=== PATIENT | female | born 1995 | race Caucasian/White ===

== ENCOUNTER 2023-06-15 23:16 | Emergency (ER) | payer OTHER, SELFPAY ==
[2023-06-15 23:19] VITALS: BP 140/85; PULSE 73; RESP 16; TEMP 36.5; O2SAT 100
--- NOTE | 2023-06-15 23:29 | ED_ITS ---
HPI - Dental/Oral General Chief complaint: Dental/Oral Stated complaint: HEADACHE/DENTAL PAIN Time Seen by Provider: 06/15/23 23:26 Source: patient Mode of arrival: walk-in Limitations: no limitations History of Present Illness HPI Narrative: presents complaining of dental pain . Worsening over the past week. Now has pain radiating from her tooth and causing a headache. No fever or dizziness . no nausea or neck pain Teeth map: 1. tender caries Related Data Home Medications Medication Instructions Recorded Confirmed No Known Home Medications 06/15/23 06/15/23 Allergies Allergy/AdvReac Type Severity Reaction Status Date / Time amoxicillin Allergy Uncoded 06/15/23 23:21 Review of Systems ROS Status of ROS 10 or more systems reviewed and unremarkable except as noted in history and below PFS PFS Social History Smoking status: Current some day smoker Exam Constitutional Vital Signs, click to edit/add: Last Vital Signs Temp 97.7 F 06/15/23 23:19 Pulse 73 06/15/23 23:19 Resp 16 06/15/23 23:19 BP 140/85 06/15/23 23:19 Pulse Ox 100 06/15/23 23:19 O2 Del Method Room Air 06/15/23 23:19 Common normals: no apparent distress, average body habitus, oriented x3, no hanley itations, healthy appearing and well nourished HENMT Other: tender pos. cervical chain nodes Eye Common normals: PERRL and EOMs intact bilaterally General eye: normal appearance of both eyes Respiratory Common normals: normal respiratory effort, no retractions, no use of accessory muscles and clear to auscultation bilaterally Cardio Common normals: regular rate, regular rhythm, S1 normal heart sound and S2 normal heart sound Extremity Common normals: normal to inspection Neuro Common normals: oriented x3, CN's II-XII intact bilaterally, moves all extr emities and no focal motor deficits Psych Appearance: grossly normal Course Vital Signs Vital signs: Vital Signs Temperature 97.7 F 06/15/23 23:19 Pulse Rate 73 06/15/23 23:19 Respiratory Rate 16 06/15/23 23:19 Blood Pressure 140/85 06/15/23 23:19 Pulse Oximetry 100 06/15/23 23:19 Oxygen Delivery Method Room Air 06/15/23 23:19 Temperature 97.7 F 06/15/23 23:19 Pulse Rate 73 12/04/23 23:19 Respiratory Rate 16 06/15/23 23:19 Blood Pressure 140/85 06/15/23 23:19 Pulse Oximetry 100 06/15/23 23:19 Oxygen Delivery Method Room Air 06/15/23 23:19 MDM - Dental/Oral MDM Narrative Medical decision making narrative: presents with worsening dental pain that is now causing right sided headache. No neuro symptoms. Dental caries #1 is tender. also has tender associated nodes. No fever. Discharged with a prescription of clindamycin. advised to follow up with her dentist Discharge Plan Discharge Chief Complaint: Dental/Oral Clinical Impression: Dental abscess Patient Disposition: Home, Self-Care Prescriptions / Home Meds: No Action No Known Home Medications Instructions: Dental Abscess (ED) Stand Alone Forms: Portal Instructions
[2023-06-15] MEDS: CLINDAMYCIN HCL 150 MG CAPSULE 300 MG PO (23:46)
== END 2023-06-15 23:50 | disposition home or self-care (01) ==
PROVIDERS: Emergency Provider Internal Medicine
DX: K04.7 Periapical abscess without sinus (principal); F17.210 Nicotine dependence, cigarettes, uncomplicated
CPT/HCPCS: 99283

== ENCOUNTER 2023-06-29 16:40 | Emergency (ER) | payer OTHER, SELFPAY ==
[2023-06-29 16:49] VITALS: BP 124/72; PULSE 60; RESP 18; TEMP 36.7; O2SAT 100; BMI 31.6
[2023-06-29 17:51] LABS: Influenza Virus A Antigen Negative; Influenza Virus B Antigen Negative; Internal Control Within Normal Limits; Strep A Antigen Screen Negative
[2023-06-29 17:52] LABS: SARS-CoV-2 Ag NEGATIVE (NEGATIVE)
[2023-06-29 17:57] VITALS: BP 121/72; PULSE 68; RESP 18; O2SAT 100
--- NOTE | 2023-06-29 18:03 | ED.URI1 ---
HPI - URI/Sore Throat General Chief Complaint: Upper Respiratory Infection Stated Complaint: COUGH, SORE THROAT, NAUSEA Time Seen by Provider: 06/29/23 16:43 Source: patient Limitations: no limitations Limitations comment: Cough, nausea, sore throat History of Present Illness HPI Narrative: Patient is a 27-year-old female who presents to the emergency department for the evaluation of upper respiratory symptoms for the last 4 days. Patient has had no objective fevers. She reports feeling nauseous and lightheaded associated with stuffy nose, cough and occasional phlegm production. She has had no vomiting. No concern for . No medications taken prior to arrival. Related Data Previous Rx's Medication Instructions Recorded zgvoienzfqwefqa-ahnusxmegqbrjrb-EW 10 ml PO Q6H PRN cold symptoms 06/29/23 2 mg-30 mg-10 mg/5 mL oral syrup #200 mL (Bromfed DM) ondansetron 4 mg disintegrating 4 mg PO Q6H PRN nausea and 06/29/23 tablet vomiting #12 tabs Allergies Allergy/AdvReac Type Severity Reaction Status Date / Time amoxicillin Allergy Uncoded 06/29/23 16:49 Review of Systems ROS Constitutional Denies: fever or chills Ears, nose, mouth, and throat Reports: throat pain and nasal congestion Cardiovascular Denies: chest pain Respiratory Reports: cough; Denies: shortness of breath Gastrointestinal Denies: nausea, vomiting or diarrhea Genitourinary Denies: painful urination Musculoskeletal Denies: back pain Integumentary/Breast Denies: rash Neurological Reports: dizziness; Denies: headache Endocrine Denies: excessive urination PFSH PFSH Social History Smoking status: Current some day smoker Exam Narrative Exam Narrative: Gen.: Awake, alert, in no distress Head: Normocephalic, atraumatic ENT: Moist mucous membranes, bilateral TMs clear, no pharyngeal erythema Respiratory: No respiratory distress, lungs clear bilaterally Cardio: Regular rate and rhythm Extremities: Moves extremities equally Psych: Normal mood and affect Neuro: No focal neuro deficit Skin: Warm, dry, intact Constitutional Vital Signs, click to edit/add: Last Vital Signs Temp 98.0 F 06/29/23 16:49 Pulse 68 06/29/23 17:57 Resp 18 06/29/23 17:57 BP 121/72 06/29/23 17:57 Pulse Ox 100 06/29/23 17:57 O2 Del Method Room Air 06/29/23 16:49 Course Vital Signs Vital signs: Vital Signs Temperature 98.0 F 06/29/23 16:49 Pulse Rate 60 06/29/23 16:49 Respiratory Rate 18 06/29/23 16:49 Blood Pressure 124/72 06/29/23 16:49 Pulse Oximetry 100 06/29/23 16:49 Oxygen Delivery Method Room Air 06/29/23 16:49 Temperature 98.0 F 06/29/23 16:49 Pulse Rate 68 06/29/23 17:57 Respiratory Rate 18 06/29/23 17:57 Blood Pressure 121/72 06/29/23 17:57 Pulse Oximetry 100 06/29/23 17:57 Oxygen Delivery Method Room Air 06/29/23 16:49 MDM - URI/Sore Throat MDM Narrative Medical decision making narrative: Patient is negative for strep, influenza and COVID. She is treated with Decadron in the ER and discharged home with Bromfed-DM and Zofran. Follow-up with PCP and return to the ER if symptoms change or worsen. Medical Records Attestation: I reviewed the patient's medical records. Lab Data Attestation: I reviewed the patient's lab results. Labs: Lab Results 06/29/23 Range/Units 16:55 SARS-CoV-2 (PCR) Negative (NEGATIVE) Influenza Type A Ag Negative Influenza Type B Ag Negative Streptococcus Screen Negative Discharge Plan Discharge Chief Complaint: Upper Respiratory Infection Clinical Impression: Upper respiratory infection Patient Disposition: Home, Self-Care Time of Disposition Decision: 18:01 Condition: Good Prescriptions / Home Meds: New syvooiuqmpdkujw-yfmhhuvxl-UO [Bromfed DM] 2-30-10 mg/5 mL syrup 10 ml PO Q6H PRN (Reason: cold symptoms) Qty: 200 0RF ondansetron 4 mg tablet,disintegrating 4 mg PO Q6H PRN (Reason: nausea and vomiting) Qty: 12 0RF Instructions: Upper Respiratory Infection (ED) Stand Alone Forms: Portal Instructions Referrals: Physician,Non-Staff, MD [Primary Care Provider] - 1 week
[2023-06-29] MEDS: DEXAMETHASONE SOD PHOS 10 MG/ML VIAL PO (18:11)
[2023-06-30 15:45] LABS: SARS-CoV-2 NAA NOT DETECTED (NOT DETECTE)
== END 2023-06-29 18:14 | disposition home or self-care (01) ==
PROVIDERS: Physician Assistant; Emergency Provider Emergency Medicine
DX: J06.9 Acute upper respiratory infection, unspecified (principal); F17.200 Nicotine dependence, unspecified, uncomplicated
CPT/HCPCS: 87070; 87635; 87804; 87811; 87880; 99283; J1100

== ENCOUNTER 2023-10-11 20:18 | Emergency (ER) | payer OTHER, SELFPAY ==
[2023-10-11 20:36] VITALS: BP 148/86; PULSE 73; TEMP 36.8; O2SAT 100; BMI 32.9
[2023-10-11] MEDS: BENZOCAINE 30 ML, lidocaine HCL 15 ML MM (21:13)
--- NOTE | 2023-10-11 21:14 | ED.DENTAL1 ---
HPI - Dental/Oral General Chief complaint: Dental/Oral Stated complaint: DENTAL PAIN Time Seen by Provider: 10/11/23 20:41 Source: patient Mode of arrival: walk-in History of Present Illness HPI Narrative: 28-year-old female presents for pain to her right upper dentition, tooth #1. She does not have a dentist. She feels like it swollen. No difficulty breathing or swallowing and she has not had a fever. The pain is moderate and continuous. Related Data Previous Rx's ?Medication ?Instructions ?Recorded qthbrjcmbxvumup-wwxblijtjzuxbuv-SI 10 ml PO Q6H PRN cold symptoms 06/29/23 2 mg-30 mg-10 mg/5 mL oral syrup #200 mL (Bromfed DM) ondansetron 4 mg disintegrating 4 mg PO Q6H PRN nausea and 06/29/23 tablet vomiting #12 tabs clindamycin HCl 300 mg capsule 300 mg PO Q6H 10 days #40 caps 10/11/23 ibuprofen 800 mg tablet 800 mg PO Q8H PRN pain #20 tabs 10/11/23 Allergies Allergy/AdvReac Type Severity Reaction Status Date / Time amoxicillin Allergy Unknown Verified 06/29/23 18:10 Review of Systems ROS Narrative A ten point review of systems is negative except as noted above. PFSH PFSH Social History Smoking status: Current some day smoker Exam Narrative Exam Narrative: Nurses note and vital signs reviewed and patient is not hypoxic. General: The patient appears well and in no apparent distress. Patient is resting comfortably on cart. Skin: Warm, dry, no pallor noted. There is no rash noted. Head: Normocephalic, atraumatic Eye: Normal conjunctiva, no drainage Ears, Nose, Mouth, and Throat: oral mucosa is moist. Nares patent. No swelling to the floor of her mouth. No gingival swelling or erythema. No bleeding or pus present. Cardiovascular: Regular Rate and Rhythm Respiratory: Patient is in no distress, no accessory muscle use, lungs are clear to auscultation, no wheezing, rales or rhonchi Back: non-tender GI: Soft and nontender Musculoskeletal: No joint swelling Neurological: Awake and alert Psychiatric: Cooperative Constitutional Vital Signs, click to edit/add: Last Vital Signs Temp 98.3 F 10/11/23 20:36 Pulse 73 10/11/23 20:36 Resp 16 10/11/23 20:36 BP 148/86 H 10/11/23 20:36 Pulse Ox 100 10/11/23 20:36 O2 Del Method Room Air 10/11/23 20:36 Course Vital Signs Vital signs: Vital Signs Temperature 98.3 F 10/11/23 20:36 Pulse Rate 73 10/11/23 20:36 Respiratory Rate 16 10/11/23 20:36 Blood Pressure 148/86 H 10/11/23 20:36 Pulse Oximetry 100 10/11/23 20:36 Oxygen Delivery Method Room Air 10/11/23 20:36 Temperature 98.3 F 10/11/23 20:36 Pulse Rate 73 10/11/23 20:36 Respiratory Rate 16 10/11/23 20:36 Blood Pressure 148/86 H 10/11/23 20:36 Pulse Oximetry 100 10/11/23 20:36 Oxygen Delivery Method Room Air 10/11/23 20:36 MDM - Dental/Oral MDM Narrative Medical decision making narrative: She started on clindamycin here and prescribed clindamycin and ibuprofen and given dental referral list. Treatment diagnosis and follow-up were discussed with the patient. Differential Diagnosis Differential diagnosis: Likely gingival abscess, dental caries, toothache and dental abscess Discharge Plan Discharge Stand Alone Forms: Portal Instructions Chief Complaint: Dental/Oral Clinical Impression: Toothache Patient Disposition: Home, Self-Care Time of Disposition Decision: 21:13 Condition: Good Mode of Transportation: Private Vehicle Prescriptions / Home Meds: New clindamycin HCl 300 mg capsule 300 mg PO Q6H 10 Days Qty: 40 0RF ibuprofen 800 mg tablet 800 mg PO Q8H PRN (Reason: pain) Qty: 20 0RF No Action eauhccarmmdjcsp-lliarfxvy-TS [Bromfed DM] 2-30-10 mg/5 mL syrup 10 ml PO Q6H PRN (Reason: cold symptoms) Qty: 200 0RF ondansetron 4 mg tablet,disintegrating 4 mg PO Q6H PRN (Reason: nausea and vomiting) Qty: 12 0RF Print Language: St [place] Instructions: Toothache (ED) Additional Instructions: See dental referral list Referrals: Physician,Non-Staff, MD [Primary Care Provider] - 1 week
[2023-10-11] MEDS: CLINDAMYCIN HCL 150 MG CAPSULE 300 MG PO (21:25)
== END 2023-10-11 21:29 | disposition home or self-care (01) ==
PROVIDERS: Emergency Provider Emergency Medicine
DX: K08.89 Other specified disorders of teeth and supporting structures (principal); F17.210 Nicotine dependence, cigarettes, uncomplicated
CPT/HCPCS: 99283

== ENCOUNTER 2024-01-25 12:07 | Emergency (ER) | payer SELFPAY ==
[2024-01-25 12:13] VITALS: BP 151/90; PULSE 95; TEMP 36.7; O2SAT 100; BMI 33.0
--- NOTE | 2024-01-25 13:59 | ED.GENADUL1 ---
HPI HPI - General Adult General Chief complaint: Dental/Oral Stated complaint: DENTAL PAIN Time Seen by Provider: 01/25/24 12:16 Source: patient Mode of arrival: walk-in Limitations: no limitations History of Present Illness HPI narrative: 28-year-old female to the emergency department chief complaint of dental pain. She reports right posterior lower molar discomfort. She reports she has had a fractured tooth for some time but now there is swelling and redness about the area. She has not seen a dentist yet. She denies any fever, sweats, chills. She is able to eat. She is allergic to amoxicillin Related Data Home Medications ?Medication ?Instructions ?Recorded ?Confirmed No Known Home Medications 01/25/24 01/25/24 Previous Rx's ?Medication ?Instructions ?Recorded clindamycin HCl 150 mg capsule 450 mg (3 x 150 mg) PO Q8H 7 days 01/25/24 #63 caps ibuprofen 800 mg tablet 800 mg PO Q8H PRN pain #20 tabs 01/25/24 Allergies Allergy/AdvReac Type Severity Reaction Status Date / Time amoxicillin Allergy Unknown Verified 06/29/23 18:10 Opioid HPI Opioid Management Most Recent Opioid Data: Last Pain Scale 10 10/11/23 21:16 Review of Systems ROS Status of ROS 10 or more systems reviewed and unremarkable except as noted in history and below PFSH PFSH Social History Smoking status: Current some day smoker Exam Narrative Exam Narrative: VITALS: I have reviewed the triage vital signs. GENERAL: Well developed, well appearing adult in no acute distress. NEURO: Alert and oriented. Moves all extremities. Face is symmetric and expressive. EYES: PERRL. No scleral icterus or conjunctival injection. No discharge. HENT: Normocephalic, atraumatic. Hearing is grossly intact. Nares grossly patent and without discharge. Mucous membranes moist. Patient has a fractured posterior molar with some gingival erythema. No discrete abscess NECK: No JVD. Patient moves neck without restriction. EXTREMITIES: Symmetric muscle bulk. No joint swelling. No clubbing, cyanosis, or deformity. SKIN: Warm and dry. Normal turgor. No rash or lesions appreciated. PSYCH: Mood, affect, and interaction is appropriate to the setting. Constitutional Vital Signs, click to edit/add: Last Vital Signs Temp 98.1 F 01/25/24 12:13 Pulse 95 H 01/25/24 12:13 Resp 18 01/25/24 12:13 BP 151/90 H 01/25/24 12:13 Pulse Ox 100 01/25/24 12:13 Course Vital Signs Vital signs: Vital Signs Temperature 98.1 F 01/25/24 12:13 Pulse Rate 95 H 01/25/24 12:13 Respiratory Rate 18 01/25/24 12:13 Blood Pressure 151/90 H 01/25/24 12:13 Pulse Oximetry 100 01/25/24 12:13 Temperature 98.1 F 01/25/24 12:13 Pulse Rate 95 H 01/25/24 12:13 Respiratory Rate 18 01/25/24 12:13 Blood Pressure 151/90 H 01/25/24 12:13 Pulse Oximetry 100 01/25/24 12:13 Medical Decision Making MDM Narrative Medical decision making narrative: Patient has what appears to be dental infection surrounding a fractured tooth. Clindamycin, ibuprofen, instructed follow-up with dentistry. Patient was discharged home. Medical Records Medical records reviewed: Yes I reviewed the patient's medical records Discharge Plan Discharge Stand Alone Forms: Portal Instructions Chief Complaint: Dental/Oral Clinical Impression: Fracture of tooth Patient Disposition: Home, Self-Care Time of Disposition Decision: 12:32 Condition: Good Mode of Transportation: Private Vehicle Prescriptions / Home Meds: New clindamycin HCl 150 mg capsule 450 mg PO Q8H 7 Days Qty: 63 0RF ibuprofen 800 mg tablet 800 mg PO Q8H PRN (Reason: pain) Qty: 20 0RF No Action No Known Home Medications Print Language: P[place]inig Instructions: Toothache (ED) Additional Instructions: Call the office of your primary care doctor to arrange for follow-up within the above-stated timeframe. Your ED visit was focused on your acute issue and does not replace primary care. You should review your labs, imaging, and diagnoses from this ED visit with your primary care physician. There may be non-emergent/ incidental findings that need further evaluation. You should review your vital signs including blood pressure with your PCP. If you were prescribed medications you should discuss possible side-effects and drug interactions with your pharmacist. Call 911 or go to the nearest Emergency Department if you develop any new or worsening symptoms. Call dental clinics to arrange for definitive care. You should be seen within the next 7 days. Referrals: Physician,Non-Staff, MD [Primary Care Provider] - 1 week Discharge Date/Time: 01/25/24 12:40
== END 2024-01-25 12:40 | disposition home or self-care (01) ==
PROVIDERS: Emergency Provider Student in an Organized Health Care Education/Training Program
DX: S02.5XXA Fracture of tooth (traumatic), initial encounter for closed fracture (principal); X58.XXXA Exposure to other specified factors, initial encounter; F17.200 Nicotine dependence, unspecified, uncomplicated
CPT/HCPCS: 99283

== ENCOUNTER 2024-10-17 23:06 | Emergency (ER) | payer SELFPAY ==
[2024-10-17 23:13] VITALS: BP 141/81; PULSE 68; TEMP 36.7; O2SAT 100; BMI 34.7
--- NOTE | 2024-10-17 23:47 | ED_ITS ---
HPI - Dental/Oral General Chief complaint: Dental/Oral Stated complaint: HEADACHE, NAUSEA Time Seen by Provider: 10/17/24 23:39 Source: patient Mode of arrival: walk-in History of Present Illness HPI Narrative: patient complains of dental pain that started yesterday. Has mild nausea. No obvious facial swelling. No fever or abdominal pain Related Data Home Medications ?Medication ?Instructions ?Recorded ?Confirmed No Known Home Medications 01/25/24 01/25/24 Previous Rx's ?Medication ?Instructions ?Recorded clindamycin HCl 150 mg capsule 450 mg (3 x 150 mg) PO Q8H 7 days 01/25/24 #63 caps ibuprofen 800 mg tablet 800 mg PO Q8H PRN pain #20 tabs 01/25/24 Allergies Allergy/AdvReac Type Severity Reaction Status Date / Time amoxicillin Allergy Unknown Rash Verified 10/17/24 23:12 Review of Systems 2 ROS0 Status of ROS 10 or more systems reviewed and unremark able except as noted in history and below PFSH PFS Social History Smoking status: Current some day smoker Little interest or pleasure in doing things: not at all Feeling down, depressed, or hopeless: not at all Exam Constitutional Vital Signs, click to edit/add: Last Vital Signs Temp 98.1 F 10/17/24 23:13 Pulse 68 10/17/24 23:13 Resp 20 10/17/24 23:13 BP 141/81 10/17/24 23:13 Pulse Ox 100 10/17/24 23:13 O2 Del Method Room Air 10/17/24 23:13 Common normals: no apparent distress, average body habitus, oriented x3, no limitations, healthy appearing, alert and well nourished [facility] Common normals: normocephalic and head/scalp atraumatic Teeth and gingiva image: 2 1. dental caries. tender Eye Common normals: PERRL, EOMs intact bilaterally and conjunctivae normal Respiratory Common normals: normal respiratory effort, no retractions, no use of accessory muscles and clear to auscultation bilaterally Cardio Common normals: regular rate, regular rhythm, S1 normal heart sound and S2 normal heart sound GI Common normals: Normal to inspection, nondistended, normoactive bowel sounds present, soft to palpation and non-tender Extremity Common normals: normal to inspection and full ROM Neuro Common normals: oriented x3, CN's II-XII intact bilaterally, moves all extremities and no focal motor deficits Psych Appearance: grossly normal Course Vital Signs Vital signs: Vital Signs Temperature 98.1 F 10/17/24 23:13 Pulse Rate 68 10/17/24 23:13 Respiratory Rate 20 10/17/24 23:13 Blood Pressure 141/81 10/17/24 23:13 Pulse Oximetry 100 10/17/24 23:13 Oxygen Delivery Method Room Air 10/17/24 23:13 Temperature 98.1 F 10/17/24 23:13 Pulse Rate 68 10/17/24 23:13 Respiratory Rate 20 10/17/24 23:13 Blood Pressure 141/81 10/17/24 23:13 Pulse Oximetry 100 10/17/24 23:13 Oxygen Delivery Method Room Air 10/17/24 23:13 MDM - Dental/Oral MDM Narrative Medical decision making narrative: patient presents with worsening dental pain and mild nausea. Has obvious dental caries that is tender and probably represents early abscess as the pain is progressing. Treated with clindamycin and discharged to follow up with her dentist Discharge Plan Discharge Chief Complaint: Dental/Oral Clinical Impression: Dental abscess Patient Disposition: Home, Self-Care Prescriptions / Home Meds: No Action No Known Home Medications clindamycin HCl 150 mg capsule 450 mg PO Q8H 7 Days Qty: 63 0RF ibuprofen 800 mg tablet 800 mg PO Q8H PRN (Reason: pain) Qty: 20 0RF Print Language: Andorran Instructions: Dental Abscess (ED) Referrals: Physician,Non-Staff, MD [Primary Care Provider] - 1 week
[2024-10-18] MEDS: ONDANSETRON 4 MG RAPDIS TABLET SL
[2024-10-18] MEDS: CLINDAMYCIN HCL 150 MG CAPSULE PO
--- NOTE | 2024-10-18 00:11 | PC.NURSE ---
Pain to right upper jaw, broken tooth noted.
== END 2024-10-18 00:15 | disposition home or self-care (01) ==
PROVIDERS: Emergency Provider Internal Medicine
DX: K04.7 Periapical abscess without sinus (principal); K08.89 Other specified disorders of teeth and supporting structures; R11.0 Nausea
CPT/HCPCS: 99283; Q0162

== ENCOUNTER 2024-12-16 21:48 | Emergency (ER) | payer SELFPAY ==
[2024-12-16 21:53] VITALS: BP 133/81; PULSE 85; TEMP 36.6; O2SAT 99; BMI 35.0
--- NOTE | 2024-12-16 22:13 | ED_ITS ---
HPI HPI - General Adult General Chief complaint: Ear Stated complaint: earache Time Seen by Provider: 12/16/24 21:55 Source: patient Mode of arrival: walk-in Limitations: no limitations History of Present Illness HPI narrative: This 29-year-old female presents with a 2-day history of pain in the right ear which is triggering a migraine headache. She denies chills or fever or neck stiffness. No visual symptoms are reported. She has had occasional sore throat. She denies cough or congestion or shortness of breath. She is not hypertensive or diabetic. And she denies any possibility of . Related Data Previous Rx's ?Medication ?Instructions ?Recorded doxycycline hyclate 100 mg capsule 100 mg PO BID 7 day s #14 caps 12/16/24 xgwenicq-gbzxmgcwb-rlricixtk 3.5 4 drp otic (ear) Q8H 5 days #10 mL 12/16/24 mg-10,000 unit/mL-1 % ear drops,susp Allergies Allergy/AdvReac Type Severity Reaction Status Date / Time amoxicillin Allergy Unknown Rash Verified 10/17/24 23:12 Opioid HPI Opioid Management Most Recent Opioid Data: Last Pain Scale 10 10/11/23, 21:16 Review of Systems ROS Status of ROS 10 or more systems reviewed and unremark able except as noted in history and below PFSH PFSH Social History Smoking status: Current some day smoker Little interest or pleasure in doing things: not at all Feeling down, depressed, or hopeless: not at all Exam Narrative Exam Narrative: Afebrile and nondistressed. Vital signs are stable and are as documented. The right ear canal is erythematous with tenderness to pressure over the tragus. There is no surrounding cellulitis around the right ear or adenopathy. The tympanic membrane is normal in appearance. The left tympanic membrane and ear canal are normal. Pharynx is without injection or exudate. Neck is supple and is without adenopathy. Lung sounds are clear to auscultation bilaterally with good air entry. Heart has regular rate and rhythm. Abdomen is soft nontender. Skin is warm and dry. Constitutional Vital Signs, click to edit/add: Last Vital Signs Temp 97.9 F 12/16/24 21:53 Pulse 85 12/16/24 21:53 Resp 16 12/16/24 21:53 BP 133/81 12/16/24 21:53 Pulse Ox 99 12/16/24 21:53 O2 Del Method Room Air 12/16/24 21:53 Course Vital Signs Vital signs: Vital Signs Temperature 97.9 F 12/16/24 21:53 Pulse Rate 85 12/16/24 21:53 Respiratory Rate 16 12/16/24 21:53 Blood Pressure 133/81 12/16/24 21:53 Pulse Oximetry 99 12/16/24 21:53 Oxygen Delivery Method Room Air 12/16/24 21:53 Temperature 97.9 F 12/16/24 21:53 Pulse Rate 85 12/16/24 21:53 Respiratory Rate 16 12/16/24 21:53 Blood Pressure 133/81 12/16/24 21:53 Pulse Oximetry 99 12/16/24 21:53 Oxygen Delivery Method Room Air 12/16/24 21:53 Medical Decision Making MDM Narrative Medical decision making narrative: Patient presents with a right earache and her presentation suggest otitis externa. My plan is to place her on Cortisporin otic eardrops and doxycycline. Ibuprofen is to be taken for pain. Follow-up is advised with her PCP and she may return anytime for worsening symptoms. Discharge Plan Discharge Chief Complaint: Ear Clinical Impression: Otitis externa Qualifiers: Otitis externa type: unspecified type Chronicity: acute Laterality: right Qualified Code(s): H60.501 - Unspecified acute noninfective otitis externa, right ear Patient Disposition: Home, Self-Care Time of Disposition Decision: 22:15 Condition: Good Mode of Transportation: Private Vehicle Prescriptions / Home Meds: New doxycycline hyclate 100 mg capsule 100 mg PO BID 7 Days Qty: 14 0RF vpsaafbl-nqtnesxjb-ZV 3.5-10,000-1 mg/mL-unit/mL-% drops,suspension 4 drp otic (ear) Q8H 5 Days Qty: 10 0RF Print Language: Malay Instructions: Swimmer's Ear (ED) Additional Instructions: Ibuprofen 400 mg every 6 hours for pain as needed. Follow-up with your physician in a week's time. Return for worsening symptoms. Referrals: Physician,Non-Staff, MD [Primary Care Provider] - 1 week Discharge Date/Time: 12/16/24 22:31
[2024-12-16] MEDS: IBUPROFEN 600 MG TABLET PO (22:24)
[2024-12-16] MEDS: DOXYCYCLINE MONOHYDRATE 100 MG CAPSULE PO (22:24)
== END 2024-12-16 22:31 | disposition home or self-care (01) ==
PROVIDERS: Emergency Provider Emergency Medicine
DX: H60.501 Unspecified acute noninfective otitis externa, right ear (principal); F17.200 Nicotine dependence, unspecified, uncomplicated
CPT/HCPCS: 99283